=== PATIENT | female | born 1945 | race Caucasian/White ===

== ENCOUNTER 2017-06-29 02:56 | Emergency (ER) | payer MEDICARE, BC ==
[2017-06-29] MEDS ORDERED: ATROPINE 0.5 MG/5 ML DISP.SYRIN. ONE (03:00)
[2017-06-29] MEDS ORDERED: EPINEPHrine 30 MG/30 ML VIAL ONE (03:00)
[2017-06-29] MEDS ORDERED: SODIUM BICARB ADULT 8.4% 50 MEQ/50 ML DISP.SYRIN. ONE (03:00)
[2017-06-29] MEDS ORDERED: EPINEPHrine SYRINGE 1 MG/10 ML SYRINGE ONE (03:00)
--- NOTE | 2017-06-29 04:51 | PHYS DOC ---
Adult General Chief Complaint Chief Complaint: CPR/FULL ARREST HPI HPI 72-year-old female with a history of coronary artery disease on nitroglycerin when necessary, COPD on home O2, hypertension on Cozaar, anxiety on Ativan, depression, AAA. Patient now brought in by EMS unresponsive. Patient called EMS just prior to arrival and reported that she experienced back pain since last p.m. at around 9. EMS arrived and patient was conversant but immediately upon getting into the ambulance she became unresponsive and had some brief seizure- like activity. Prehospital IV access was unable to be obtained. Patient was bagged and transported to the emergency department. On arrival patient's pupils are fixed and dilated 6 mm bilateral. CPR and ACLS protocol initiated. Review of Systems Review of Systems Per EMS patient had stated that she had severe back pain since last night at 9 PM and was otherwise at her baseline. Otherwise Review of systems unable to be obtained secondary to patient's GCS of 3 Physical Exam Physical Exam Constitutional: Elderly frail appearing female with severe pallor GCS of 3 pupils fixed and dilated at 6 mm bilateral without asymmetry. Mucous membranes dry HENT: Normocephalic, atraumatic, bilateral external ears normal, oropharynx dry , no oral exudates, nose normal. [] Eyes: Pupils 6 mm bilateral dilated and fixed. Conjunctiva normal, no discharge. [] Neck: Normal appearing Cardiovascular: No pulse Lungs & Thorax: Bilateral breath sounds clear to auscultation with bag valve mask respirations[] Abdomen: No bowel sounds appreciated. Nondistended abdomen no palpable masses Skin: Cool, dry, pale Back: nl Extremities: Cool pulseless, no edema. [] Neurologic: GCS 3 Psychologic: As above EKG EKG [] Radiology/Procedures Radiology/Procedures Endotracheal Intubation by me: Pre assessment performed. See preceding note for details. Pre-oxygenation performed with 100% oxygen RSI: Performed w/o complication Blade: 3 mac ET Tube: 7.5mm Depth: 21cm at the lip Intubation confirmed by equal breath sounds, quiet over the stomach. Intraosseous Line Placement by me: Anesthesia: Not indicated Location: Anteromedial, Proximal Tibia (1-3 cm below Tibial tuberosity ) right tibia Device: EZ-IO Needle blue 2.5 cm, Technique: EZ-IO Drill Results: Bone Marrow Aspirated, No extravasation Complications: No evidence of extravasation, compartment syndrome, growth plate damage, or fat embolism Course & Med Decision Making Course & Med Decision Making Pertinent Labs and Imaging studies reviewed. (See chart for details) Elderly female pulseless was pupils fixed and dilated on arrival in ED. CPR/ ACLS interventions initiated. Intraosseous access obtained right proximal tibia , see note. Asystole identified on the defibrillator monitor. Multiple rounds of epinephrine were administered every 3 minutes. Patient intubated by me C note. At one point patient PE a with bradycardia and atropine administered. 2 A of bicarbonate administered. No return of spontaneous circulation since patient arrival. After 5 rounds of epinephrine and resuscitative efforts discontinued and code called by me at 3:21 AM. Case discussed with patient's primary care physician Dr. Jese Sherman who is aware the history and findings and interventions today and agrees that evaluation by the caregivers non medical's not indicated and he will sign the certificate. Multiple calls placed to family and nursing distribution operation supervisor but they were unable to be reached initially. [employer] compliant Messages left [] Dragon Disclaimer Dragon Disclaimer This electronic medical record was generated, in whole or in part, using a voice recognition dictation system. Departure Departure: Impression: Primary Impression: Cardiac arrest Additional Impression: Unsuccessful cardiopulmonary resuscitation Disposition: 20 Referrals: WHITNEY GRAY (PCP) Problem Qualifiers CARLOS WOLF MD Jun 29, 2017 04:51
== END 2017-06-29 12:35 | disposition expired ==
LOC: ER 02:56
DX: I46.9 Cardiac arrest, cause unspecified (principal); J44.9 Chronic obstructive pulmonary disease, unspecified; F41.9 Anxiety disorder, unspecified; F32.9 Major depressive disorder, single episode, unspecified; I10 Essential (primary) hypertension; I25.10 Atherosclerotic heart disease of native coronary artery without angina pectoris; I71.4 Abdominal aortic aneurysm, without rupture; Z99.81 Dependence on supplemental oxygen
CPT/HCPCS: 31500; 36680; 92950; 99285; J0171; J0461